=== PATIENT | female | born 1975 ===

== ENCOUNTER 2018-06-21 15:44 | Emergency (ER) | payer OTHER ==
[2018-06-21 15:44] VITALS: BMI 22.5
[2018-06-21 15:50] VITALS: BP 121/73; PULSE 90; RESP 16; TEMP 98.4; O2SAT 100
--- NOTE | 2018-06-21 18:22 | CT ---
Date of service: 06/21/18 CT lumbar spine without IV contrast Indication: Trauma Comparison: None available Technique: Noncontrast axial images of the lumbar spine were provided. Sagittal and coronal reformatted images were generated and reviewed. This CT exam was performed using 1 or more of the following dose reduction techniques: Automated exposure control, adjustment of the MAA and/or kV according to patient size, and/or use of iterative reconstruction technique. Total exam DLP: 713.93 MGy-cm Findings: Vertebral body heights appear within normal limits. Alignment appears satisfactory. No acute fracture or subluxation identified. 8 mm sclerotic focus within the right iliac, possibly bone island. Paraspinal soft tissues appear unremarkable. Right lower lobe punctate calcification, likely granuloma. Apparent fluid within the endometrium. Probable lobulated uterus; correlate for possibility of fibroids. Limited visualization of the intra-abdominal and intrapelvic contents appear otherwise grossly unremarkable. Impression: No acute fracture or subluxation identified. Right lower lobe punctate calcification, likely granuloma. Apparent fluid within the endometrium. Probable lobulated uterus; correlate for possibility of fibroids. Pelvic ultrasound may be considered for further evaluation.
--- NOTE | 2018-06-21 18:27 | RAD ---
Date of service: 06/21/2018 PROCEDURE: Radiographs of the left elbow. HISTORY: trauma COMPARISON: No prior. FINDINGS: BONES: No acute fracture. JOINTS: Unremarkable. SOFT TISSUES: Normal. JOINT EFFUSION: None. OTHER FINDINGS: None IMPRESSION: Unremarkable radiographs of the left elbow.
--- NOTE | 2018-06-21 18:28 | RAD ---
Date of service: 06/21/2018 PROCEDURE: Radiographs of the left tibia and fibula. HISTORY: trauma COMPARISON: None available. TECHNIQUE: Frontal and lateral views obtained. FINDINGS: BONES: No fracture or destructive lesion. JOINT SPACES: Unremarkable. OTHER FINDINGS: None. IMPRESSION: Unremarkable radiographs of the left tibia and fibula.
--- NOTE | 2018-06-21 18:28 | ED PDOC ---
HPI: Trauma/Fall - HPI Time Seen by Provider: 06/21/18 16:21 Chief Complaint (Nursing): Back Pain Chief Complaint (Provider): Pain s/p Fall History Per: Patient History/Exam Limitations: no limitations Onset/Duration Of Symptoms: Hrs (earlier today) Additional Complaint(s): 42 year old female presents to the ED for evaluation s/p slipping and falling down stair earlier today landing in a seated position. She reports pain to her neck, left elbow, left hip, lower back, and left leg. Otherwise denies head injury, blunt trauma to the neck, numbness, tingling, ankle pain, abdominal pain, and chest pain. PMD: [facility] Past Medical History Reviewed: Historical Data, Nursing Documentation, Vital Signs Vital Signs: Last Vital Signs Temp 98.4 F 06/21/18 15:46 Pulse 90 06/21/18 15:46 Resp 16 06/21/18 15:46 BP 121/73 06/21/18 15:46 Pulse Ox 100 06/21/18 15:46 - Medical History PMH: Asthma, Back Problems (Herniated Discs x3 within lower back), Pulmonary Embolism, Rheumatoid Arthritis - Surgical History Surgical History: Tonsillectomy, - Family History Family History: States: CAD (grandmother ) - Living Arrangements Living Arrangements: With Family - Home Medications Home Medications: Ambulatory Orders Medication Instructions Recorded Ciprofloxacin/Ciprofloxa HCl 500 mg PO BID #14 tab 12/06/15 [Ciprofloxacin] Ibuprofen 600 mg PO Q6 PRN #20 tablet 12/06/15 Phenazopyridine HCl [Pyridium] 100 mg PO BID #6 tablet 12/06/15 Naproxen [Naprosyn] 1 tab PO BID PRN #25 tab 01/11/16 Nitrofurantoin Macrocrystals 1 cap PO BID #14 cap 01/11/16 [Macrobid] Sulfamethoxazole/Trimethoprim 1 tab PO BID #14 tab 02/19/16 [Bactrim DS 800 mg-160 mg] Promethazine/Codeine 5 ml PO Q6 PRN #100 ml 06/19/16 [Phenergan/Codeine Oral Syrup] Meloxicam [Mobic] 7.5 mg PO DAILY PRN #30 tab 09/25/16 Methocarbamol [Robaxin] 500 mg PO Q8 PRN #30 tab 09/25/16 Cyclobenzaprine [Cyclobenzaprine 10 mg PO Q8 PRN #10 tab 06/21/18 HCl] - Allergies Allergies/Adverse Reactions: Allergies Allergy/AdvReac Type Severity Reaction Status Date / Time Penicillins Allergy RASH Verified 06/21/18 15:46 tramadol Allergy RASH Verified 06/21/18 15:46 Review of Systems ROS Statement: Except As Marked, All Systems Reviewed And Found Negative Cardiovascular: Negative for: Chest Pain Gastrointestinal: Negative for: Abdominal Pain Musculoskeletal: Positive for: Neck Pain, Arm Pain (left elbow), Back Pain (lower), Leg Pain (left hip and leg). Negative for: Foot Pain (ankle pain) Neurological: Negative for: Numbness (or tingling) Physical Exam - Reviewed Nursing Documentation Reviewed: Yes Vital Signs Reviewed: Yes - Physical Exam Appears: Positive for: No Acute Distress Head Exam: Positive for: ATRAUMATIC, NORMOCEPHALIC Skin: Positive for: Normal Color. Negative for: Rash Neck: Negative for: Painless ROM (paracervical muscle tenderness, no midline cervical tenderness) Cardiovascular/Chest: Positive for: Regular Rate, Rhythm, Chest Non Tender Respiratory: Positive for: Normal Breath Sounds. Negative for: Accessory Muscle Use, Respiratory Distress Pulses-Dorsalis Pedis (L): 2+ Pulses-Dorsalis Pedis (R): 2+ Pulses-Radial (L): 2+ Pulses-Radial (R): 2+ Gastrointestinal/Abdominal: Positive for: Normal Exam, Soft. Negative for: Tenderness, Other (ecchymosis) Back: Positive for: Other (mild midline lumbar tenderness). Negative for: L CVA Tenderness, R CVA Tenderness Extremity: Positive for: Tenderness (mild to left elbow, left hip, left leg). Negative for: Deformity (to left elbow, left hip, left leg), Swelling (to left elbow, left hip, left leg) Neurologic/Psych: Positive for: Alert, Oriented (x3) - ECG O2 Sat by Pulse Oximetry: 100 (RA) Pulse Ox Interpretation: Normal Medical Decision Making Medical Decision Making: Time: 1649 Initial Impression: pain s/p fall Initial Plan: --CT lumbar spine --U-preg --C-spine XR --Left elbow XR --Left hip with pelvis XR --Left tibia fibula XR 1819 CT Lumbar spine Findings: Vertebral body heights appear within normal limits. Alignment appears satisfactory. No acute fracture or subluxation identified. 8 mm sclerotic focus within the right iliac, possibly bone island. Paraspinal soft tissues appear unremarkable. Right lower lobe punctate calcification, likely granuloma. Apparent fluid within the endometrium. Probable lobulated uterus; correlate for possibility of fibroids. Limited visualization of the intra-abdominal and intrapelvic contents appear otherwise grossly unremarkable. Impression: No acute fracture or subluxation identified. Right lower lobe punctate calcification, likely granuloma. Apparent fluid within the endometrium. Probable lobulated uterus; correlate for possibility of fibroids. Pelvic ultrasound may be considered for further evaluation. 182 Elbow XR FINDINGS: BONES: No acute fracture. JOINTS: Unremarkable. SOFT TISSUES: Normal. JOINT EFFUSION: None. OTHER FINDINGS: None IMPRESSION: Unremarkable radiographs of the left elbow. 1825 Tibia fibula XR FINDINGS: BONES: No fracture or destructive lesion. JOINT SPACES: Unremarkable. OTHER FINDINGS: None. IMPRESSION: Unremarkable radiographs of the left tibia and fibula. 184 Hip XR FINDINGS: BONES: No acute fracture. JOINTS: Normal. SOFT TISSUES: Normal. OTHER FINDINGS: None. IMPRESSION: No demonstrated fracture or dislocation. Scribe Attestation: Documented by Katharine Albarran, acting as a scribe for Gerson Alvarez PA-C Provider Scribe Attestation: All medical record entries made by the Scribe were at my direction and personally dictated by me. I have reviewed the chart and agree that the record accurately reflects my personal performance of the history, physical exam, medical decision making, and the department course for this patient. I have also personally directed, reviewed, and agree with the discharge instructions and disposition. Disposition - Clinical Impression Clinical Impression: Fall, Cervical sprain, Low back pain, Contusion, hip, Contusion of leg - Patient ED Disposition Is Patient to be Admitted: No - Disposition Referrals: Lexx Maurice MD [Medical Doctor] - Disposition: Routine/Home Disposition Time: 18:53 Condition: STABLE Additional Instructions: PEDRITO TANNER, thank you for letting us take care of you today. Your provider was Lucrecia Fitzgerald MD and you were treated for FALL: BACK PAIN, NECK PAIN, LT ARM PAIN. The emergency medical care you received today was directed at your acute symptoms. If you were prescribed any medication, please fill it and take as directed. It may take several days for your symptoms to resolve. Return to the Emergency Department if your symptoms worsen, do not improve, or if you have any other problems. Please contact your doctor or call one of the physicians/clinics you have been r eferred to that are listed on the Patient Visit Information form that is included in your discharge packet. Bring any paperwork you were given at discharge with you along with any medications you are taking to your follow up visit. Our treatment cannot replace ongoing medical care by a primary care provider outside of the emergency department. Thank you for allowing the [facility] team to be part of your care today. If you had an X-Ray or CT scan: A Radiologist will review the ED reading if any change in treatment is needed we will contact you. If you had a blood, urine, or wound culture: It will take several days for the results, if any change in treatment is needed we will contact you. If you had an STI test: It will take 48 hours for the results. Please call after 1 week if you have not heard back. Prescriptions: Cyclobenzaprine [Cyclobenzaprine HCl] 10 mg PO Q8 PRN #10 tab PRN Reason: Muscle Spasm Instructions: Contusion (DC), Neck Sprain (DC) Forms: [employer] (Ugandan) Print Language: FRENCH
--- NOTE | 2018-06-21 18:45 | RAD ---
PROCEDURE: Left Hip X-ray Radiographs. HISTORY: trauma COMPARISON: None. FINDINGS: BONES: No acute fracture. JOINTS: Normal. SOFT TISSUES: Normal. OTHER FINDINGS: None. IMPRESSION: No demonstrated fracture or dislocation.
== END 2018-06-21 18:58 | disposition home or self-care (01) ==
LOC: H.ER 15:44
DX: M54.5 Low back pain (principal); S13.4XXA Sprain of ligaments of cervical spine, initial encounter; S70.02XA Contusion of left hip, initial encounter; S80.12XA Contusion of left lower leg, initial encounter; W10.9XXA Fall (on) (from) unspecified stairs and steps, initial encounter